=== PATIENT | female | born 1995 | race Caucasian/White ===

== ENCOUNTER 2022-05-21 21:01 | Outpatient (REF) | payer BC, SELFPAY ==
[2022-05-23 09:51] LABS: Clarity Clear (Clear); Specific Gravity 1.015 (1.005-1.025)
[2022-05-23 09:52] LABS: Bilirubin Negative (Negative); Blood Negative (Negative); Glucose Negative (Negative); Ketones Negative (Negative); Leukocyte Esterase Negative (Negative); Nitrite Negative (Negative); Urobilinogen 0.2 EU/dL (Up TO 0.2)
== END 2022-05-21 21:02 | disposition home or self-care (01) ==
LOC: LBN 21:01
PROVIDERS: Visit Provider Physician Assistant Medical
DX: R39.89 Other symptoms and signs involving the genitourinary system (principal)
CPT/HCPCS: 87077; 81003; 81015; 87086; 87186